=== PATIENT | female | born 1990 | race Caucasian/White ===

== ENCOUNTER 2016-12-29 14:04 | Inpatient (IN) | payer OTHER ==
[~2016-12-29] VITALS: Ht 154.9 cm; Wt 101.3 kg
[~2016-12-29 14:04] MED LIST: BENADRYL ALLERG25 MG PO; BIRTH CONTROL; CELEXA40 MG; DEPAKOTE500 MG PO; Desyrel PO; ESKALITH300 M1 PO; GEODON20 MG PO; GEODON80 MG PO; LEXAPRO10 MG PO; LITHIUM CARBON450 MG PO; PREDNISONE20 MG PO; RISPERDAL0.5 MG; TRAZODONE HCL50 MG PO; TRI-SPRINTEC1 EACH; TRI-SPRINTEC1 EACH PO; TRILEPTAL300 MG PO; VYVANSE20 MG PO; ZOLOFT50 MG PO
[2016-12-29 14:42] LABS: HEMATOCRIT 40.6 % (36.0-46.0); MCH 30.7 PG (29.0-34.0); MCV 93.1 FL (83-99); MEAN PLAT.VOLUME 10.1 uM^3 (9.5-12.4); PLATELET COUNT 313 K/uL (156-360); RBC DIS.WIDTH-CV 13.2 % (11.8-14.6); RBC DIS.WIDTH-SD 44.9 % (39-53); RED BLOOD COUNT 4.36 M/uL (3.80-5.20); WHITE BLOOD COUNT 11.7 K/uL (4.1-10.2)
[2016-12-29 14:51] LABS: CHLORIDE 106 mEq/L (99-109); POTASSIUM 3.7 mEq/L (3.7-5.4); SODIUM 140 mEq/L (136-147)
[2016-12-29 14:53] LABS: GLUCOSE 95 mg/dL (70-99)
[2016-12-29 14:55] LABS: ANION GAP 12 MEQ/L (2-14)
[2016-12-29 14:56] LABS: SERUM ETHYL ALCOHOL < 10 mg/dL
[2016-12-29 14:57] LABS: GFR ESTIMATE (CALCULATED) > 59 mL/min/
[2016-12-29 14:59] LABS: UREA NITROGEN (BUN) 6 mg/dL (9-23)
[2016-12-29 15:00] LABS: SALICYLATE < 5.0 MG/DL (15-30)
[2016-12-29 15:07] LABS: QUANTITATIVE HCG < 4.0 MIU/ML
[2016-12-29 15:14] LABS: AMPHETAMINE NEGATIVE (500 ng/mL); BARBITURATES NEGATIVE (200 ng/mL); BENZODIAZEPINES NEGATIVE (150 ng/mL); COCAINE NEGATIVE (150 ng/mL); INTERNAL CONTROLS VALID? YES; METHADONE NEGATIVE (200 ng/mL); METHAMPHETAMINE NEGATIVE (500 ng/mL); OPIATES (MORPHINE) NEGATIVE (100 ng/mL); OXYCODONE NEGATIVE (100 ng/mL); PHENCYCLIDINE NEGATIVE (25 ng/mL); PROPOXYPHENE NEGATIVE (300 ng/mL); THC CANNABINOIDS NEGATIVE (50 ng/mL); TRICYCLIC ANTIDEPRESSANTS NEGATIVE (300 ng/mL)
[2016-12-29] MEDS ORDERED: OMEPRAZOLE40 M1 PO (17:36)
[2016-12-29] MEDS ORDERED: NO DOZ200 MG PO (17:37)
[2016-12-29] MEDS ORDERED: LAMICTAL150 M1 PO (17:37)
[2016-12-29] MEDS ORDERED: CELEXA20 MG PO (17:38)
[2016-12-29] MEDS ORDERED: VENTOLIN HFA18 GM IH (17:38)
[2016-12-29 19:05] VITALS: BP 135/77
[2016-12-29 19:17] VITALS: BP 135/77
[2016-12-30] MEDS ORDERED: TRINESSA1 EACH PO (07:54)
[2016-12-30 08:20] VITALS: BP 127/63
[2016-12-30 15:46] VITALS: BP 115/63
[2016-12-31 07:50] VITALS: BP 91/51
[2016-12-31 15:37] VITALS: BP 125/60
[2017-01-01 07:55] VITALS: BP 100/52
[2017-01-01 15:59] VITALS: BP 113/68
[2017-01-02 08:04] VITALS: BP 103/54
[2017-01-02 11:28] VITALS: BP 123/66
[2017-01-02 15:35] VITALS: BP 111/69
[2017-01-03 07:58] VITALS: BP 95/60
[2017-01-03] MEDS ORDERED: LAMICTAL25 MG PO (09:52)
[2017-01-03] MEDS ORDERED: CITALOPRAM HBR20 MG PO (09:52)
== END 2017-01-03 11:35 | disposition home or self-care (01) | DRG 885 ==
LOC: EME → EDBD 14:04 → EME 14:04 → 1WEST 17:39 → EDOF 17:39 → 1WEST 19:10
PROVIDERS: Emergency Medicine
DX: F33.1 Major depressive disorder, recurrent, moderate (principal); R45.851 Suicidal ideations; Z68.41 Body mass index [BMI] 40.0-44.9, adult; T43.592A Poisoning by other antipsychotics and neuroleptics, intentional self-harm, initial encounter; J45.909 Unspecified asthma, uncomplicated; K21.9 Gastro-esophageal reflux disease without esophagitis; E66.3 Overweight; F60.3 Borderline personality disorder; Z62.819 Personal history of unspecified abuse in childhood; Z91.5 Personal history of self-harm
CPT/HCPCS: 80048; 80175 90; 84702; 85027; 90837; 93005; 97150 GO; 97166 GO; 99202; 99281; 99285; G0480; Q0177

== ENCOUNTER 2017-01-05 14:00 | Emergency (ER) | payer OTHER ==
[~2017-01-05] VITALS: Ht 154.9 cm; Wt 103.4 kg
[~2017-01-05 14:00] MED LIST changes: +CELEXA20 MG PO; +CITALOPRAM HBR20 MG PO; +LAMICTAL150 M1 PO; +LAMICTAL25 MG PO; +NO DOZ200 MG PO; +OMEPRAZOLE40 M1 PO; +TRINESSA1 EACH PO; +VENTOLIN HFA18 GM IH
[2017-01-05 14:52] LABS: HEMATOCRIT 41.2 % (36.0-46.0); MCH 30.7 PG (29.0-34.0); MCHC 33.5 G/DL (30.0-36.0); MCV 91.8 FL (83-99); PLATELET COUNT 312 K/uL (156-360); RBC DIS.WIDTH-CV 12.6 % (11.8-14.6); RED BLOOD COUNT 4.49 M/uL (3.80-5.20); WHITE BLOOD COUNT 9.3 K/uL (4.1-10.2)
[2017-01-05 15:15] LABS: AMPHETAMINE NEGATIVE (500 ng/mL); BARBITURATES NEGATIVE (200 ng/mL); BENZODIAZEPINES NEGATIVE (150 ng/mL); COCAINE NEGATIVE (150 ng/mL); INTERNAL CONTROLS VALID? YES; METHADONE NEGATIVE (200 ng/mL); METHAMPHETAMINE NEGATIVE (500 ng/mL); OPIATES (MORPHINE) NEGATIVE (100 ng/mL); OXYCODONE NEGATIVE (100 ng/mL); PHENCYCLIDINE NEGATIVE (25 ng/mL); PROPOXYPHENE NEGATIVE (300 ng/mL); THC CANNABINOIDS NEGATIVE (50 ng/mL); TRICYCLIC ANTIDEPRESSANTS NEGATIVE (300 ng/mL)
[2017-01-05 15:16] LABS: CHLORIDE 104 mEq/L (99-109); POTASSIUM 4.3 mEq/L (3.7-5.4); SODIUM 138 mEq/L (136-147)
[2017-01-05 15:18] LABS: GLUCOSE 101 mg/dL (70-99)
[2017-01-05 15:19] LABS: ANION GAP 12 MEQ/L (2-14)
[2017-01-05 15:21] LABS: SERUM ETHYL ALCOHOL < 10 mg/dL
[2017-01-05 15:22] LABS: GFR ESTIMATE (CALCULATED) > 59 mL/min/
[2017-01-05 15:23] LABS: UREA NITROGEN (BUN) 12 mg/dL (9-23)
[2017-01-05 15:31] LABS: QUANTITATIVE HCG < 4.0 MIU/ML
[2017-01-05 18:59] VITALS: BP 129/73
== END 2017-01-05 19:02 | disposition home or self-care (01) ==
LOC: EME 14:00
DX: F33.1 Major depressive disorder, recurrent, moderate (principal); F60.3 Borderline personality disorder; M54.2 Cervicalgia; H53.8 Other visual disturbances; J45.909 Unspecified asthma, uncomplicated
CPT/HCPCS: 80048; 84702; 85027; 90839; 99281; 99285; G0480